=== PATIENT | female | born 1995 | race Caucasian/White ===

== ENCOUNTER 2022-05-19 14:20 | Emergency (ER) | payer OTHER ==
[2022-05-19 14:37] VITALS: BP 114/69; PULSE 91; RESP 18; TEMP 98; BMI 20.3
[2022-05-19 17:16] LABS: BASO % 0.6 % (0-2.0); EOS % 0.6 % (0-4.5); HEMATOCRIT 42.8 % (32.4-45.2); HEMOGLOBIN 14.2 GM/dL (10.7-15.3); LYMPH % 30.2 % (8-40); MCH 29.4 pg (25.7-33.7); MCHC 33.2 g/dl (32.0-36.0); MEAN CELL VOLUME 88.7 fl (80-96); MEAN PLT VOLUME 9.6 fl (7.5-11.1); MONO % 7.3 % (3.8-10.2); NEUT % 61.3 % (42.8-82.8); PLATELET COUNT 319 10^3/uL (134-434); RBC 4.83 M/mm3 (3.60-5.2); RDW 12.7 % (11.6-15.6); WHITE BLOOD COUNT 8.7 K/mm3 (4.0-10.0)
[2022-05-19 17:23] LABS: INR 1.06 (0.83-1.09); PROTHROMBIN TIME (PATIENT) 12.3 SEC (9.7-13.0)
[2022-05-19 17:26] LABS: ACTIVATED PTT 20.1 SECONDS (25.2-36.5)
[2022-05-19] MEDS ORDERED: guaiFENesin 600 MG TABLET.ER (FP) PO ONE (17:32)
[2022-05-19 17:49] LABS: CALCIUM 9.3 mg/dL (8.5-10.1)
[2022-05-19 17:50] LABS: ALBUMIN 4.3 g/dl (3.4-5.0); BLOOD UREA NITROGEN 10.6 mg/dL (7-18)
[2022-05-19 17:52] LABS: CREATININE 0.7 mg/dL (0.55-1.3)
[2022-05-19 17:54] LABS: BILIRUBIN,TOTAL 0.4 mg/dL (0.2-1); TOT PROT 8.6 g/dl (6.4-8.2)
== END 2022-05-19 18:25 | disposition home or self-care (01) ==
LOC: JERFT 14:20
DX: R05.1 Acute cough (principal); R09.81 Nasal congestion
CPT/HCPCS: 36415; 71046-TC-FY; 80053; 85025; 85379; 85610; 85730; 93005; 93010; 99285-25